=== PATIENT | female | born 1990 | race Caucasian/White ===

== ENCOUNTER → 2019-09-28 10:24 | Outpatient (BNVA) | payer SELFPAY | PROVIDERS: Family Provider Counselor Professional; Visit Provider Emergency Medicine | DX: M79.672 Pain in left foot (principal) | CPT/HCPCS: 73630 ==

== ENCOUNTER → 2020-06-13 09:50 | Outpatient (BNVA) | payer OTHER, SELFPAY | PROVIDERS: Family Provider Counselor Professional; Visit Provider Obstetrics & Gynecology | DX: Z12.4 Encounter for screening for malignant neoplasm of cervix (principal); N92.6 Irregular menstruation, unspecified | CPT/HCPCS: 83036; 83525; 84443; 88175 ==

== ENCOUNTER → 2020-06-22 08:38 | Outpatient (BNVA) | payer OTHER, SELFPAY | PROVIDERS: Family Provider Counselor Professional; Visit Provider Obstetrics & Gynecology | DX: N92.6 Irregular menstruation, unspecified (principal); N85.00 Endometrial hyperplasia, unspecified | CPT/HCPCS: 76830 ==

== ENCOUNTER → 2020-07-18 | Day surgery (SDC) | payer OTHER, SELFPAY | LOC: OPS 07-26 15:06 | PROVIDERS: Visit Provider Obstetrics & Gynecology | DX: Z01.818 Encounter for other preprocedural examination (principal); N84.0 Polyp of corpus uteri; N92.0 Excessive and frequent menstruation with regular cycle | CPT/HCPCS: 93005 ==

== ENCOUNTER → 2020-07-20 15:02 | Outpatient (BNVA) | payer OTHER, SELFPAY | PROVIDERS: Visit Provider Obstetrics & Gynecology | DX: Z20.822 Contact with and (suspected) exposure to COVID-19 (principal) | CPT/HCPCS: 87635 ==

== ENCOUNTER 2020-07-26 10:23 | Day surgery (SDC) | payer OTHER, SELFPAY ==
[2020-07-18 12:27] VITALS: BMI 44.1
--- NOTE | 2020-07-18 12:42 | ECG_ITS ---
[facility] Test Date: 2020-07-18 Pat Name: Starr Saldana Department: Room: Gender: Female Line Rider: : 1990 Requested By: Carolina Mcclellan Order Number: [id number] Rita MD: Meredith Osorio M.D. Measurements Intervals [place] Rate: 91 P: 33 RI: 163 QRS: 28 QRSD: 96 T: 51 QT: 364 QTc: 450 Interpretive Statements SINUS RHYTHM WARNING: DATA QUALITY MAY AFFECT INTERPRETATION No previous ECG available for comparison Electronically Signed On 07-18-2020 19:55:40 CDT by Meredith Osorio M.D. [email or web address] [email or web address] [id number]
[2020-07-26 10:53] LABS: OR HCG Qualitative Urine Negative (Negative)
[2020-07-26 10:55] VITALS: BP 127/94; PULSE 86; RESP 18; TEMP 36.6; O2SAT 98
[2020-07-26] MEDS: sodium chloride 0.9% 500 ML IV (11:12)
[2020-07-26] MEDS: ketorolac 30 mg/mL INJ IVP (11:12)
[2020-07-26 11:33] LABS: Glucose Point of Care 85 mg/dL (70-110)
[2020-07-26] MEDS: sodium chloride 0.9% 1,000 ML 30 ML IV (12:15)
--- NOTE | 2020-07-26 12:42 | W.PM.OPSUD ---
Surgery/Procedure H&P Update DATE OF PROCEDURE: July 26, 2020 DATE H&P PERFORMED: 07/18/20 H&P UPDATE INFORMATION: I have reviewed H&P completed within last 30 days, I have examined patient prior to procedure and No changes to prior documentation PREOP DIAGNOSIS: endometrial.endocervical polyp PLANNED PROCEDURE: Operation Date: 07/26/20 11:45 Proposed Procedures p Hysteroscopy w/ Myosure(Not Applicable) - Cuca Loja MD s Dilation And Curettage (D&C)(Not Applicable) - Cuca Loja MD
[2020-07-26] MEDS: miSOPROStol 200 mcg Tablet 600 MCG PO (13:29)
[2020-07-26 13:46] VITALS: BP 109/69; PULSE 90; RESP 16; TEMP 36.3; O2SAT 94
[2020-07-26 13:50] VITALS: BP 99/74; PULSE 96; RESP 20; O2SAT 94
[2020-07-26 13:55] VITALS: BP 102/85; PULSE 81; RESP 20; TEMP 36.3; O2SAT 95
--- NOTE | 2020-07-26 13:57 | PM.OP ---
Operative Report Date of procedure: July 26, 2020 Pre-op Diagnosis: endometrial.endocervical polyp Post-op diagnosis: other Post-op Diagnosis: unable to dilate cervix. Procedure abandoned due to possible . test is negative, but lmp was 06/24/20. I didn't want to potentially cause an . Post-op Findings: cervical stenosis Procedure Done: attempted dilation and curettage via hysteroscopy and myosure Pathology: none sent Surgeon: Cuca Loja Anesthesia: MAC Estimated blood loss (mL): 2 IV fluids (mL): 600 Urine output (mL): 0 Complications: Unable to perform hysteroscopy due to cervical stenosis. I was previously able to perform endosee in the office without any dilation or anesthesia Condition: stable Disposition: PACU Brief History: The patient was seen for irregular menses. Endosee was performed and endometrial and endocervical polyps were visualized. She was scheduled for hysteroscopy and removal of the polyps with myosure. Procedure: The patient was taken to the operating room where monitored anesthesia was administered and found to be adequate. She was prepped and draped in the normal sterile fashion in the dorsal lithotomy position in [facility]. A weighted speculum was placed into the vagina and the anterior lip of the cervix grasped with a single-tooth tenaculum. I attempted to dilate and the cervix was closed and firm. 600 mcg of Cytotec were placed into the vagina. I waited approximately 10 to 15 minutes and was still unable to dilate the cervix. A note that the patient has been attempting and her last menstrual period was 06/24. She has irregular periods and a urine test today was negative. I strongly suspect that she has an early that has yet to be detected. For this reason, the procedure was aborted as I did not want to cause an in this patient. Anesthesia did not give her any medications that would be harmful to her . I removed the Cytotec prior to the end of the procedure. Tolerated the procedure well. Sponge lap and needle counts were correct x3. She was taken to the recovery room in stable condition.
--- NOTE | 2020-07-26 14:08 | PM.DCS ---
Discharge Providers Date of Discharge: July 26, 2020 Attending Provider at Discharge: Cuca Loja MD Diagnoses at Discharge Discharge Diagnosis (1) Postoperative state: Status: Acute Reason for Visit Reason for Visit: hysterocopy Hospital Course Hospital Course The patient was admitted for surgery. She had a negative test, but has irregular periods. The cervix today was extremely stenotic and in spite of using cytotec, I was unable to dilate the cervix at all. Due to the remote possibility that the patient could be and just too early to have a positive test, I abandoned the procedure. I explained my reasoning to both the patient and her and they understood. She will come to the clinic next week for a quant HCG> Physical Exam Urinary Catheter Management^: Martines: Cath Placed During This Visit: yes, but has since been removed by the nurse Urinary Catheter Date of Insertion: 07/26/20 Urinary Catheter Time of Insertion: 13:30 Date Urinary Catheter Removed: 07/26/20 Time Urinary Catheter Discontinued: 13:46 Discharge Data Data Completed and Pending: Pending at discharge Category Date Time Status ES surgery / GI i mages Routine Exams 07/26/20 12:48 Ordered Labs from last 24 hours 07/26/20 07/26/20 11:29 10:51 POC Glucose 85 Urine HCG, Qual Negative Vitals: Last Vital Signs Temp 97.3 F L 07/26/20 13:46 Pulse 81 07/26/20 13:55 Resp 20 H 07/26/20 13:55 BP 102/85 07/26/20 13:55 Pulse Ox 95 07/26/20 13:55 Discharge Plan Discharge Patient Disposition: Home Condition: Stable Prescriptions: Continued multivitamin with minerals [Hair,Skin and Nails] Tablet 1 tab PO DAILY RF: 0 vitamin B complex [B Complex-Vitamin B12] Tablet 1 tab PO DAILY RF: 0 loperamide [Imodium A-D] 2 mg tablet 2 mg PO Q6H PRN (Reason: Constipation) RF: 0 metformin 500 mg tablet 500 mg PO BID Qty: 120 RF: 3 Discharge Orders: Discharge Order (Routine); Ordered 07/26/20 Ordered By: Cuca Loja Discharge Attestations Time Spent in Discharge Care*: less than 30 min Quality Metrics Clinical Quality Measures During this hospital stay, did patient experience: None Coding Level of Care Code Acute Chg FW DC note Diagnoses Postoperative state Z98.890
[2020-07-26 14:23] VITALS: BP 103/65; PULSE 76; RESP 18; TEMP 36.6; O2SAT 96
--- NOTE | 2020-07-26 14:50 | SUR.PHASEII ---
encouraged patient to call doctor office or return to ED if bleeding increases and cramping. Pt to return to women clinic for lab work.
--- NOTE | 2020-07-26 15:40 | ANE.PACU2 ---
Inpatient post-anesthesia follow up: Airway intact: Yes Vital signs: Temperature 97.8 F Pulse Rate 76 Respiratory Rate 18 Blood Pressure 103/65 Pulse Oximetry 96 Oxygen Delivery Me thod Room Air Oxygen Flow Rate Fraction of Inspir ed Oxygen Hydration adequate: Yes Nausea and vomiting: No Pain level: 2 Mental status: Baseline
== END 2020-07-26 14:51 | disposition home or self-care (01) ==
PROVIDERS: Visit Provider Obstetrics & Gynecology
PROC: (CPT 58558; principal; 2020-07-26 11:35)
DX: N84.0 Polyp of corpus uteri (principal); Z53.8 Procedure and treatment not carried out for other reasons
CPT/HCPCS: 58558; 36416; 81025; 82962; 84703; 96365; 96374; J0690; J1885; J2250; J2704; J3010; J7030; J7040

== ENCOUNTER → 2020-07-27 15:30 | Outpatient (BNVA) | payer OTHER, SELFPAY | PROVIDERS: Visit Provider Obstetrics & Gynecology | DX: N92.6 Irregular menstruation, unspecified (principal) | CPT/HCPCS: 84702 ==

== ENCOUNTER → 2020-08-24 12:06 | Outpatient (BNVA) | payer OTHER, SELFPAY | PROVIDERS: Visit Provider Obstetrics & Gynecology | DX: Z01.812 Encounter for preprocedural laboratory examination (principal); Z20.822 Contact with and (suspected) exposure to COVID-19 | CPT/HCPCS: 87635 ==

== ENCOUNTER 2020-08-30 06:38 | Day surgery (SDC) | payer OTHER, SELFPAY ==
[2020-08-24 11:30] VITALS: BMI 42.3
--- NOTE | 2020-08-24 13:07 | ANES.PREANE2 ---
Pre-Anesthetic Assessment Pre-Anesthetic Assessment: Height/Weight: Height 1.6 m Weight 108.409 kg Preop Diagnosis: endometrial polyps, cervical stenosis Proposed Procedure: Operation Date: 08/30/20 08:00 Proposed Procedures p Hysteroscopy w/ Myosure 06225 N84.0(Not Applicable) - Cuca Loja MD s Dilation And Curettage (D&C)(Not Applicable) - Cuca Loja MD s Poylpectomy(Not Applicable) - Cuca Loja MD Was Beta Zulema taken within 24 hours: N/A Was Clonidine taken within 24 hours: N/A Social: Social History: No alcohol and No tobacco Exam: Pre-Anes Outpt Exam: alert, oriented x 3, clear to auscultation bilaterally and regular rate & rhythm Airway: Submandibular: WNL Cervical ROM: WNL MP: 2 Dentition: Full Metabolic: Metabolic: DM and Morbid obesity Anesthetic Plan: ASA status: 2 Anesthesia: General Risk of > 500 ml blood loss (7ml/kg in children): No PFSH Anesthesia PFSH: Family History Family/Other Cancer 2 maternal aunts had lung cancer Ovarian cyst paternal aunt Grandmother Cancer paternal, throat cancer Diabetes maternal and paternal Grandfather Cancer paternal, throat cancer Father Hyperlipidemia Hypertension Denies family history of Ovarian cancer CAD (coronary artery disease) Clotting disorder Chronic kidney disease (CKD) Breast cancer Anesthesia complication Family history of thyroid problem Bleeding disorder Stroke Social History (Updated 08/14/20 @ 07:53 by Starr Claudio LPN) Smoking and tobacco status: former smoker Quit status (tobacco): has quit using tobacco Year quit tobacco: 2019 Alcohol intake: current Alcohol intake frequency: holidays/special occasions only History of recent travel: No Current gender identity: Female Female Reproductive History: Date of last menstrual period: 08/03/20 Data Anesthesia Cardiac Studies: No Data to Display
[2020-08-30 06:57] VITALS: BP 132/85; PULSE 100; RESP 16; TEMP 36.8; O2SAT 98
[2020-08-30 07:04] LABS: OR HCG Qualitative Urine Negative (Negative)
[2020-08-30] MEDS: sodium chloride 0.9% 1,000 ML 30 ML IV (07:13)
[2020-08-30 07:14] LABS: Glucose Point of Care 91 mg/dL (70-110)
--- NOTE | 2020-08-30 08:00 | W.PM.OPSUD ---
Surgery/Procedure H&P Update DATE OF PROCEDURE: August 30, 2020 DATE H&P PERFORMED: 08/14/20 H&P UPDATE INFORMATION: I have reviewed H&P completed within last 30 days, I have examined patient prior to procedure and No changes to prior documentation PREOP DIAGNOSIS: endometrial.endocervical polyp PLANNED PROCEDURE: Operation Date: 08/30/20 08:00 Proposed Procedures p Hysteroscopy w/ Myosure 91222 N84.0(Not Applicable) - Cuca Loja MD s Dilation And Curettage (D&C)(Not Applicable) - Cuca Loja MD s Poylpectomy(Not Applicable) - Cuca Loja MD
--- NOTE | 2020-08-30 09:02 | PM.OP ---
Operative Report Date of procedure: August 30, 2020 Pre-op Diagnosis: endometrial.endocervical polyp Post-op diagnosis: same Post-op Findings: excessive tissue in the endometrium hysteroscopy deficit 285 ml Procedure Done: hysteroscopy, dilation and curettage with myosure Specimens removed/disposition: endometrial curettings Surgeon: Cuca Loja Anesthesia: MAC Estimated blood loss (mL): 5 IV fluids (mL): 700 Complications: none Findings: 7 week sized uterus with excessive tissue Condition: stable Disposition: PACU Procedure: The patient was taken to the operating room where monitored anesthesia was administered and to be adequate. She was prepped and draped in the normal sterile fashion in the dorsal lithotomy position in [facility]. A weighted speculum was placed into the vagina and the anterior lip of the cervix grasped with a single-tooth tenaculum. The uterus sounded to 7 cm. The cervix was dilated to 17 [place]. The hysteroscope was advanced into the endometrial cavity. There was excessive tissue visualized. The MyoSure device was activated and the tissue was removed. Pictures were taken pre and post procedure. All instruments were removed. The patient tolerated the procedure well. Sponge lap and needle counts were correct x3. She was taken to the recovery room in stable condition.
[2020-08-30 09:05] VITALS: BP 113/78; PULSE 98; RESP 14; TEMP 36.4; O2SAT 94
--- NOTE | 2020-08-30 09:09 | PM.DCS ---
Discharge Providers Date of Discharge: August 30, 2020 Attending Provider at Discharge: Cuca Loja MD Diagnoses at Discharge Discharge Diagnosis (1) Postoperative state: Status: Acute (2) Irregular menses: Status: Acute (3) Hyperinsulinemia: Status: Acute Reason for Visit Reason for Visit: hysteroscopy Hospital Course Hospital Course The patient was admitted for surgery. She did well postoperatively and was ready for discharge. Discharge Data Data Completed and Pending: Pending at discharge Category Date Time Status ES surgery / GI i mages Routine Exams 08/30/20 06:46 Ordered Pathology: Surgic al [PTH] Routine Pth 08/30/20 09:08 Ordered Labs from last 24 hours 08/30/20 08/30/20 07:11 06:41 POC Glucose 91 Urine HCG, Qual Negative Vitals: Last Vital Signs Temp 98.2 F 08/30/20 06:57 Pulse 100 08/30/20 06:57 Resp 16 08/30/20 06:57 BP 132/85 08/30/20 06:57 Pulse Ox 98 08/30/20 06:57 Discharge Plan Discharge Patient Disposition: Home Condition: Stable Prescriptions: Continued metformin 500 mg tablet 500 mg PO TID RF: 0 misoprostol [Cytotec] 200 mcg tablet 600 mcg PO Q6H 1 Days Qty: 12 RF: 0 multivitamin with minerals [Hair,Skin and Nails] Tablet 1 tab PO DAILY RF: 0 vitamin B complex [B Complex-Vitamin B12] Tablet 1 tab PO DAILY RF: 0 loperamide [Imodium A-D] 2 mg tablet 2 mg PO Q6H PRN (Reason: Constipation) RF: 0 Discharge Orders: Discharge Order (Routine); Ordered 08/30/20 Ordered By: Cuca Loja Referrals: Cuca Loja MD [Physician] - 09/05/20 11:00 am Patient Instructions: Post Anesthesia Care Discharge Attestations Time Spent in Discharge Care*: less than 30 min Quality Metrics Clinical Quality Measures During this hospital stay, did patient experience: None Coding Level of Care Code Acute g FW IA note Diagnoses Postoperative state Z98.890 Irregular menses N92.6 Hyperinsulinemia E16.1
[2020-08-30 09:10] VITALS: BP 127/82; PULSE 92; RESP 18; O2SAT 95
[2020-08-30 09:15] VITALS: BP 118/83; PULSE 84; RESP 17; TEMP 36.5; O2SAT 93
--- NOTE | 2020-08-30 09:15 | P.PCN_ITS ---
PACU note PACU note: VSS, Good respiratory effort, report to DENTAL TREATMENT COORDINATOR Post-Anesthesia Exam: awake
--- NOTE | 2020-08-30 09:15 | PM.PACU ---
PACU note PACU note: VSS, Good respiratory effort, report to MAKE READY MECHANIC Post-Anesthesia Exam: awake
[2020-08-30 09:21] VITALS: BP 110/84; PULSE 80; RESP 18; TEMP 36.6; O2SAT 95
[2020-08-30] MEDS: ibuprofen 800 mg tablet PO (09:40)
--- NOTE | 2020-08-30 17:58 | ANE.PACU2 ---
Inpatient post-anesthesia follow up: Airway intact: Yes Vital signs: Temperature 98 F Pulse Rate 80 Respiratory Rate 18 Blood Pressure 110/84 Pulse Oximetry 95 Oxygen Delivery Me thod Room Air Oxygen Flow Rate Fraction of Inspir ed Oxygen Hydration adequate: Yes Nausea and vomiting: No Pain level: 2 Mental status: Baseline
== END 2020-08-30 10:33 | disposition home or self-care (01) ==
PROVIDERS: Anesthesiology; Visit Provider Obstetrics & Gynecology
PROC: 0UDB8ZZ Extraction of Endometrium, Via Natural or Artificial Opening Endoscopic (ICD-10-PCS; CPT 58558; principal; 2020-08-30 07:50)
PROC: (CPT 58120; 2020-08-30 07:50)
PROC: (CPT 58558; 2020-08-30 07:50)
DX: N84.0 Polyp of corpus uteri (principal); N92.6 Irregular menstruation, unspecified; E16.1 Other hypoglycemia; E11.9 Type 2 diabetes mellitus without complications; E66.01 Morbid (severe) obesity due to excess calories; Z68.41 Body mass index [BMI] 40.0-44.9, adult; Z87.891 Personal history of nicotine dependence
CPT/HCPCS: 58558; 36416; 81025; 82962; 84703; 88305; J0330; J0690; J1885; J2405; J2704; J3010; J3490; J7030

== ENCOUNTER → 2021-07-03 13:29 | Outpatient (BNVA) | payer BC, SELFPAY | PROVIDERS: Visit Provider Obstetrics & Gynecology | DX: E16.1 Other hypoglycemia (principal); N92.6 Irregular menstruation, unspecified | CPT/HCPCS: 83525; 84702 ==

== ENCOUNTER → 2021-09-25 13:32 | Outpatient (BNVA) | payer BC, SELFPAY | PROVIDERS: Visit Provider Obstetrics & Gynecology | DX: N91.2 Amenorrhea, unspecified (principal); N92.6 Irregular menstruation, unspecified | CPT/HCPCS: 83036; 83525; 84443 ==

== ENCOUNTER 2021-11-19 14:19 | Outpatient (CLI) | payer BC, SELFPAY ==
--- NOTE | 2021-11-19 14:15 | US_ITS ---
WS: [id number] TRANSABDOMINAL PELVIC AND TRANSVAGINAL PELVIC ULTRASOUND HISTORY: N91.2 - Amenorrhea, unspecified COMPARISON: 06/22/2020 Uterus: 7.6 cm x 4.0 cm x 2.9 cm. Normal size anteverted uterus. Shadowing towards the fundus of the uterus. Shadowing like this can be seen with fibroids. There is no discrete mass identified but this could be obscured by the shadowing. No distortion of the adjacent endometrium. Endometrium: 0.7 cm. Normal size endometrium. Previously described polypoid mass has been removed. No rmal vascularity. Right ovary: 3.9 cm x 2.5 cm x 2.7 cm. Normal size. Small follicle, no mass. Normal vascularity. Left ovary: 2.5 cm x 2.2 cm x 2.3 cm. Normal size. No solid mass. Normal vascularity. Trace free fluid in the cul-de-sac. US/US pelvic with transvaginal IMPRESSION: 1. Normal endometrium. Previously described polypoid mass is been surgically r emoved. 2. Focal area of shadowing towards the uterine fundus may be a small fibroid. The shadowing is obscuring the soft tissue component. No involvement of the end ometrium.
== END 2021-11-19 14:20 | disposition home or self-care (01) ==
LOC: RAD 14:19
PROVIDERS: Visit Provider Obstetrics & Gynecology
DX: N91.2 Amenorrhea, unspecified (principal)
CPT/HCPCS: 76830; 76856

== ENCOUNTER → 2021-12-31 16:34 | Outpatient (BNVA) | payer BC, SELFPAY | PROVIDERS: Visit Provider Emergency Medicine | DX: R39.9 Unspecified symptoms and signs involving the genitourinary system (principal); N30.00 Acute cystitis without hematuria | CPT/HCPCS: 81000 ==

== ENCOUNTER 2023-08-13 16:15 | Outpatient (CLI) | payer BC, MEDICAID, SELFPAY ==
[2023-08-13 16:15] VITALS: BMI 43.7
[2023-08-13 16:36] VITALS: BP 131/86; PULSE 94
== END 2023-08-13 17:05 | disposition home or self-care (01) ==
LOC: OPOB 16:22 → OBGYN 16:23
PROVIDERS: Visit Provider Family Medicine
DX: O26.899 Other specified pregnancy related conditions, unspecified trimester (principal); Z3A.00 Weeks of gestation of pregnancy not specified; R10.9 Unspecified abdominal pain
CPT/HCPCS: 59025; 83986; 99211

== ENCOUNTER 2023-09-15 11:34 | Outpatient (CLI) | payer BC, MEDICAID, SELFPAY ==
[2023-09-15 11:44] VITALS: BMI 45.7
[2023-09-15 11:52] VITALS: BP 123/78; PULSE 97
[2023-09-15 12:12] VITALS: BP 119/69; PULSE 98
== END 2023-09-15 12:27 | disposition home or self-care (01) ==
LOC: OPOB 11:43 → OBGYN 11:44
PROVIDERS: Visit Provider Family Medicine
DX: O36.8190 Decreased fetal movements, unspecified trimester, not applicable or unspecified (principal); Z3A.00 Weeks of gestation of pregnancy not specified
CPT/HCPCS: 59025; 99211

== ENCOUNTER 2023-12-02 20:20 | Inpatient (IN) | payer BC, MEDICAID, SELFPAY ==
[2023-12-02] VITALS (9 sets, daily range): BP systolic 130–139; BP diastolic 79–92; PULSE 84–101; TEMP 36.6–36.7; BMI 47.1
[2023-12-02] MEDS: miSOPROStol 100 mcg tablet 25 MCG VAGINAL (22:10)
[2023-12-02 23:45] LABS: Basophils % 0.3 %; Eosinophils # 0.1 10^3/uL (0.0-0.8); Eosinophils % 0.7 %; Lymphocytes # 2.8 10^3/uL (0.8-4.8); Lymphocytes % 23.6 %; Mean Corpuscular HGB Conc 31.8 g/dL (30-55); Mean Corpuscular Hemoglobin 26.7 pg (27-33); Mean Platelet Volume 10.7 fL (7.4-10.4); Monocytes # 0.8 10^3/uL (0.2-0.9); Monocytes % 6.5 %; Neutrophils # 8.01 10^3/uL (1.8-7.7); Neutrophils % 68.5 %; Nucleated Red Blood Cells % 0 %; Platelet Count 315 10^3/cmm (157-399); Red Blood Count 3.93 10^6/uL (3.85-5.65); Red Cell Distribution Width 15.5 % (12.1-15.1); White Blood Count 11.69 10^3/uL (3.29-11.43)
[2023-12-03] VITALS (69 sets, daily range): BP systolic 118–178; BP diastolic 62–89; PULSE 57–91; TEMP 35.8–37.2
[2023-12-03] MEDS: dextrose 5%-lactated ringers 1,000 ML 125 ML IV ×2 (01:30→17:36)
[2023-12-03 06:50] LABS: Amphetamines Screen Urine Negative (Negative); Barbiturates Screen Urine Negative (Negative); Benzodiazepines Screen Urine Negative (Negative); Cocaine Screen Urine Negative (Negative); Opiate Screen Urine Negative (Negative); PCP Screen Urine Negative (Negative); THC Screen Urine Negative (Negative)
[2023-12-03] MEDS: oxytocin 30 UNIT/500 ML BAG IV (09:54)
[2023-12-03] MEDS: lactated ringers 1,000 ML 999 ML IV (11:57)
[2023-12-03] MEDS: ondansetron 2 mg/ML SDV 2 mL 4 MG IVP ×2 (12:21→22:19)
--- NOTE | 2023-12-03 12:29 | P.ANESUD_ITS ---
Pre-Anesthetic Update Pre-Anesthetic Assessment: Date of Surgery/Procedure: 12/03/23 Proposed Procedure: Active Labor Any changes to Pre-Anesthetic Assessment?: No Changes from Pre- Anesthetic Assessment: patient reports no changes in health since speaking with Dr. Hunt. Last Intake: 729 meal clears current. Labs Last 48hrs: Short CBC 12/02/23 Range/Units 22:00 WBC 11.69 H (3.29-11.43) 10^ 3/uL Hgb 10.50 L (11.27-16.99) g/ dL Hct 33.0 L (36-47) % MCV 84.0 L (85-98) fl Plt Count 315 (157-399) 10^3/c mm Neut % (Auto) 68.5 % Neut # (Auto) 8.01 H (1.8-7.7) 10^3/u L Blood Bank 12/02/23 22:00 Blood Type O Positive Rho(D) Type Rh positive Antibody Screen Negative Vitals: Temperature 96.4 F L 12/03/23 07:50 Temperature Source Axillary 12/02/23 21:14 Pulse Rate 69 12/03/23 12:15 Pulse Rhythm Regular 12/02/23 20:10 Pulse Strength 3+ Normal 12/02/23 20:10 Respiratory Effort Spontaneous, Non- Labored 12/02/23 20:10 Respiratory Depth Normal 12/02/23 20:10 Respiratory Patter n Normal 12/02/23 20:10 Blood Pressure 178/84 12/03/23 12:15 Oxygen Delivery Me thod Room Air 12/02/23 20:10 Cardiac Studies: No Data to Display
[2023-12-03] MEDS: ROPivacaine syringe 100 MG/50 ML SYRINGE 10 MG EPIDURAL ×3 (13:09→21:12)
--- NOTE | 2023-12-03 13:15 | P.ANES_ITS ---
Anesthesia Procedures Procedure/Date: 12/03/23 Procedure Narrative: PRINTED CIRCUIT LAYOUT TAPER introduced self to patient educated patient on risk and benefits of epidural placement. Questions answered and chart reviewed. timeout performed prior to procedure. Epidural: Time Out Performed: Yes Consents Signed: Procedure Consent Consent: from patient Lumbar Level: L3-L4 Epidural position: sitting Epidural procedure: sterile prep of area, 1% lidocaine to numb the area, negative for paresthesia passed, test dose given, 1.5% xylocaine 1:200k epi (5 ml incremental doses), placed PCEA, no systemic response, sterile dressing applied, L.U.D. no apparent complications and 0.2% Ropiavacaine @ mls/hr (10 ml/hr) Additional Comments: EMI at 8 cm on second attempt catheter threaded to 14cm. Remaining Lidocaine and Saline given from kit post test dose. Patient reported improved contractions vital signs stable, educated on PIPING ENGINEER use.
[2023-12-04] VITALS (15 sets, daily range): BP systolic 114–153; BP diastolic 63–89; PULSE 71–106; RESP 14–17; TEMP 36.6–37.1; O2SAT 95–97
[2023-12-04] MEDS: dextrose 5%-lactated ringers 1,000 ML 125 ML IV (01:05)
--- NOTE | 2023-12-04 02:07 | PM.OPHPUD ---
Labor & Delivery H&P Update Date of Procedure: December 04, 2023 Date H&P Performed: 12/02/23 Admission Diagnosis: IUP at 40 weeks 1 day gestation Morbid obesity Planned procedure: Induction of labor and delivery
[2023-12-04] MEDS: miSOPROStol 200 mcg Tablet 800 MCG PR (03:21)
--- NOTE | 2023-12-04 03:21 | P.PCNOB_ITS ---
Delivery Note: Date of delivery: December 04, 2023 Procedure: Normal spontaneous vaginal delivery Delivering Physician: Cally Basurto MD Estimated blood loss (mL): 350 Pre-Delivery Course: The patient had routine care at [facility]. Blood type O+, antibody negative, hepatitis B nonreactive, hepatitis C nonreactive, HIV nonreactive, rubella immune, GC chlamydia negative, RPR nonreactive, UDS negative, she passed her glucose tolerance test, she was GBS negative. Other than morbid obesity there were no complications during the . Delivery: This is a 32-year-old G1, P0 at 40 weeks 1 day gestation who was admitted for induction. Her cervix was not very favorable so she received 1 dose of Cytotec. She was curt regularly and making cervical change with the Cytotec but about 12 hours after the initial dose we started high-dose Pitocin. She did receive an epidural for pain management. She underwent artificial rupture of membranes with clear fluid. Rupture of membranes was approximately 15 hours prior to delivery. her labor progressed well and despite being +1 to +2 station she did have to push for a little under 2 hours. She had a normal spontaneous vaginal delivery of a viable male weight 3350 g, 7 pounds 6 ounces, Apgars 8 and 9 over an intact perineum. The was suctioned at delivery and placed on the mother's chest. The cord was clamped and cut. The placenta was delivered grossly intact and normal to inspection. There were both left and right vaginal lacerations that were sutured using 3-0 chromic. She had some brisk vaginal bleeding and was given 800 mcg of Cytotec rectally. History History History 0 Term Miscarriages/Ectopic Living Children A&P Assessment and plan (1) Normal spontaneous vaginal delivery: Coding Level of Care Code Acute Code for Chg Fwd Diagnoses Normal spontaneous vaginal delivery O80
[2023-12-04] MEDS: oxytocin 30 UNIT/500 ML BAG 600 UNIT IV (03:40)
[2023-12-04] MEDS: lanolin oint 7 gm 1 APPLIC TOPICAL (03:57)
[2023-12-04] MEDS: ibuprofen 800 mg tablet PO ×3 (09:05→21:04)
[2023-12-04] MEDS: docusate sodium 100 mg Capsule PO ×2 (09:05→21:04)
[2023-12-04] MEDS: PRENATAL VIT NO.130/IRON/FOLIC 1 EACH TABLET PO (09:05)
[2023-12-04 15:07] LABS: Hematocrit 29.5 % (36-47); Mean Corpuscular HGB Conc 30.8 g/dL (30-55); Mean Corpuscular Hemoglobin 27.2 pg (27-33); Mean Corpuscular Volume 88.1 fl (85-98); Mean Platelet Volume 10.4 fL (7.4-10.4); Platelet Count 285 10^3/cmm (157-399); Red Blood Count 3.35 10^6/uL (3.85-5.65); Red Cell Distribution Width 15.5 % (12.1-15.1); White Blood Count 16.09 10^3/uL (3.29-11.43)
--- NOTE | 2023-12-04 19:32 | PC.NURSE ---
started crib talk video.
[2023-12-05 05:06] VITALS: BP 146/92; PULSE 82; RESP 16; TEMP 36.8; O2SAT 98
[2023-12-05] MEDS: docusate sodium 100 mg Capsule PO (08:21)
[2023-12-05] MEDS: PRENATAL VIT NO.130/IRON/FOLIC 1 EACH TABLET PO (08:21)
[2023-12-05] MEDS: ibuprofen 800 mg tablet PO (08:21)
[2023-12-05 08:26] VITALS: BP 143/85; PULSE 85; RESP 16; TEMP 36.5; O2SAT 97
--- NOTE | 2023-12-05 11:07 | P.DS_ITS ---
Discharge Providers Date of Admission: 12/02/23 20:20 Date of Discharge: December 05, 2023 Attending Provider at Admission: Cally Basurto MD Attending Provider at Discharge: Cally Basurto MD Primary Care Provider: Cally Basurto MD Diagnoses at Discharge Discharge Diagnosis (1) Normal spontaneous vaginal delivery: Status: Acute Reason for Visit Reason for Visit: IOL Hospital Course Hospital Course This is a 32-year-old G1 now P1 who was admitted for induction at 40 weeks 1 day gestation. She delivered via normal spontaneous vaginal delivery at 40 weeks 2 days gestation a viable male infant. On day #1 she was doing well. Ambulating, tolerating a regular diet, had good pain control and minimal edema. Physical Exam Narrative: Alert and oriented, sitting up in bed, heart regular rate and rhythm, lungs clear to auscultation bilaterally, abdomen is soft and nontender, fundus is firm, extremities have trace edema but no calf tenderness Urinary Catheter Management: Martines: Cath Placed During This Visit: yes, but has since been removed by the nurse Reason for Continuing Indwelling Catheter: Decision to DC Catheter Urinary Catheter Date of Insertion: 12/03/23 Urinary Catheter Time of Insertion: 14:06 Date Urinary Catheter Removed: 12/04/23 Time Urinary Catheter Discontinued: 01:43 Discharge Data Studies Completed and Pending Laboratory Results WBC 16.09 10^3/uL (3.29-11.43) H 12/04/23 14:55 RBC 3.35 10^6/uL (3.85-5.65) L 12/04/23 14:55 Hgb 9.10 g/dL (11.27-16.99) L 12/04/23 14:55 Hct 29.5 % (36-47) L 12/04/23 14:55 MCV 88.1 fl (85-98) 12/04/23 14:55 MCH 27.2 pg (27-33) 12/04/23 14:55 MCHC 30.8 g/dL (30-55) 12/04/23 14:55 RDW 15.5 % (12.1-15.1) H 12/04/23 14:55 Plt Count 285 10^3/cmm (157-399) 12/04/23 14:55 MPV 10.4 fL (7.4-10.4) 12/04/23 14:55 Neut % (Auto) 68.5 % 12/02/23 22:00 Lymph % (Auto) 23.6 % 12/02/23 22:00 [place] % (Auto) 6.5 % 12/02/23 22:00 Eos % (Auto) 0.7 % 12/02/23 22:00 Baso % (Auto) 0.3 % 12/02/23 22:00 Neut # (Auto) 8.01 10^3/uL (1.8-7.7) H 12/02/23 22:00 Lymph # (Auto) 2.8 10^3/uL (0.8-4.8) 12/02/23 22:00 [place] # (Auto) 0.8 10^3/uL (0.2-0.9) 12/02/23 22:00 Eos # (Auto) 0.1 10^3/uL (0.0-0.8) 12/02/23 22:00 Baso # (Auto) 0.0 10^3/uL (0.0-0.1) 12/02/23 22:00 Nucleated RBC % (auto) 0 % 12/02/23 22:00 Nucleated RBCs # 0.0 /100WBC 12/02/23 22:00 Urine Opiates Screen Negative ng/mL (Negative) 12/02/23 22:00 Ur Barbiturates Screen Negative ng/mL (Negative) 12/02/23 22:00 Ur Phencyclidine Scrn Negative ng/mL (Negative) 12/02/23 22:00 Ur Amphetamines Screen Negative ng/mL (Negative) 12/02/23 22:00 U Benzodiazepines Scrn Negative ng/mL (Negative) 12/02/23 22:00 Urine Cocaine Screen Negative ng/mL (Negative) 12/02/23 22:00 U Marijuana (THC) Screen Negative ng/mL (Negative) 12/02/23 22:00 Blood Type O Positive 12/02/23 22:00 Rho(D) Type Rh positive 12/02/23 22:00 Antibody Screen Negative 12/02/23 22:00 Vitals Last Vital Signs Temp 97.7 F 12/05/23 08:26 Pulse 85 12/05/23 08:26 Resp 16 12/05/23 08:26 BP 143/85 12/05/23 08:26 Pulse Ox 97 12/05/23 08:26 O2 Del Method Room Air 12/05/23 08:26 Discharge Plan Discharge Patient Disposition: Home Condition: Stable Prescriptions: New Vitamin 27 mg iron- 800 mcg Tablet 1 tab PO DAILY Qty: 90 0RF Discontinued multivitamin with minerals [Hair,Skin and Nails] Tablet 1 tab PO DAILY vitamin B complex [B Complex-Vitamin B12] Tablet 1 tab PO DAILY loperamide [Imodium A-D] 2 mg tablet 2 mg PO Q6H PRN (Reason: Constipation) ciprofloxacin HCl [Cipro] 500 mg tablet 500 mg PO BID 5 Days Qty: 10 0RF phenazopyridine [Pyridium] 200 mg tablet 200 mg PO Q8H PRN (Reason: pain) 3 Days Qty: 9 0RF metformin 500 mg tablet extended release 24 hr 500 mg PO DAILY Qty: 30 6RF Discharge Orders: Discharge Order (Routine); Ordered 12/05/23 Ordered By: Cally Basurto Referrals: Cally Basurto MD [Primary Care Provider] - 1 week (1. for BP check 2. in 4 weeks ) Discharge Diet: Usual diet Discharge Activity: Limit activity as instructed Patient Instructions: Depression (GEN), Perineal Care (GEN), Bleeding (GEN), Preeclampsia and Eclampsia After Delivery (GEN), OB Discharge Report, OB Food/Drug Interaction Guide, OB Care at Home, Opioid Safety, OB Vaginal Deliveries - [facility], Abnormal Bleeding Activity Restrictions/Additional Instructions: Nothing per vagina for 6 weeks Discharge Attestations Time Spent in Discharge Care*: less than 30 min Quality Metrics Clinical Quality Measures [ No reported AMI, CVA or VTE this stay] Coding Level of Care Code Acute Code for Chg Fwd Diagnoses Normal spontaneous vaginal delivery O80
[2023-12-05 13:15] VITALS: BP 137/83; PULSE 59; RESP 15; TEMP 36.5; O2SAT 97
== END 2023-12-05 13:20 | disposition home or self-care (01) | DRG 806 ==
LOC: OPOB 20:21 → OBGYN 20:21
PROVIDERS: Admitting Provider Family Medicine; PCP Family Medicine; Visit Provider Family Medicine
DX: O48.0 Post-term pregnancy (principal); O71.4 Obstetric high vaginal laceration alone; Z37.0 Single live birth; Z3A.40 40 weeks gestation of pregnancy; O99.214 Obesity complicating childbirth; E66.01 Morbid (severe) obesity due to excess calories
CPT/HCPCS: 36415; 51702; 59025; 59409; 80306; 85025; 85027; 86850; 86900; 96374; 96376; J2405; J2590; J2795; J7120; J7121